=== PATIENT | female | born 1970 | race Caucasian/White ===

== ENCOUNTER 2016-11-18 17:41 | Emergency (ER) | payer BC, OTHER ==
[~2016-11-18] VITALS: Ht 162.6 cm; Wt 63.9 kg
[~2016-11-18 17:41] MED LIST: NAPR220T66 PO; SULF1TAB35 PO
--- OUTSIDE RECORDS SUMMARY | 2016-11-18 17:46 | XMS REPORT ---
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
[2016-11-18 18:55] LABS: AMPHETAMINE SCREEN, URINE Negative (Negative); CANNABINOID SCREEN, URINE Negative (Negative); HCG,QUALITATIVE URINE Negative (Negative); METHAMPHETAMINE SCREEN URINE S NEGATIVE (NEGATIVE); OPIATE SCREEN URINE Negative (Negative); PROPOXYPHENE STAT NEGATIVE (NEGATIVE)
[2016-11-18] MEDS ORDERED: LORazepam 2 MG/ML (ATIVAN) 1 ML VIAL IM ONE (19:00)
[2016-11-18] MEDS ORDERED: ED- LORAZEPAM 0.5 MG (ATIVAN) 6 TABLETS/BTL PO ONE (19:00)
[2016-11-18 19:29] VITALS: BP 157/82
== END 2016-11-18 19:10 | disposition home or self-care (01) ==
LOC: ED 17:46
DX: F41.1 Generalized anxiety disorder (principal)
CPT/HCPCS: 80307; 81025; 96372; 99283; J2060